=== PATIENT | male | born 1960 | race Caucasian/White ===

== ENCOUNTER 2017-06-20 19:02 | Inpatient (IN) | payer OTHER ==
--- NOTE | 2017-06-20 19:22 | EDPHY ---
H & P Stated Complaint: RLQ ABD PAIN WITH HERNIA REPAIR SCHEDULED FOR TOMORROW Time Seen by Provider: 06/20/17 19:21 HPI/ROS: HPI: This is a 57-year-old male presents with Chief Complaint: RLQ ABD PAIN WITH HERNIA REPAIR SCHEDULED FOR TOMORROW Location: Right lower quadrant abdomen Quality: Pain Duration: Last Saturday Signs and Symptoms: no fever, no nausea, no vomiting, no hematemesis, no blood in stool, no abdominal bloating, no diarrhea, no back pain, no urinary symptoms , no testicular/groin pain, no indigestion, no chest pain, no shortness of breath Timing: Waxes and wane Severity: 10 out 10 Context: Patient reports that last Saturday he had sudden onset of right flank pain that radiated into his back but went away after several hours. Yesterday evening the pain return but was a little bit lower in his right flank and radiated into his right groin. He denies any fever/hematuria/dysuria/vomiting/ diarrhea. Does report mild nausea. He is scheduled for right inguinal hernia repair with Dr. Farias tomorrow. He denies any testicular swelling/pain. Dr. Farias ordered an outpatient CT abdomen and pelvis this evening that showed a 5 mm calculus in the distal right ureter with moderate right hydronephrosis, bilateral nephrolithiasis, no signs of obstruction or adynamic ileus and right inner direct inguinal hernia contains only fat. Modifying Factors: None Comment: ROS: see HPI Constitutional: No fever, no chills, no weight loss Eyes: No blurred vision Respiratory: No shortness of breath, no cough Cardiovascular: No chest pain, no palpitations Gastrointestinal: + nausea, no vomiting, no diarrhea, no hematemesis, no blood in stool Genitourinary: No dysuria, no blood in urine Extremities: No myalgias, no edema Neurologic: No weakness, no numbness Skin: No rashes, no petechiae Hematologic: No bruising, no bleeding MEDICAL/SURGICAL/SOCIAL HISTORY: Medical/surgical history: inguinal hernia repair, surgery rt. knee,COLON CANCER. hyponatremia Social history: . CONSTITUTIONAL: Nontoxic appearing pleasant adult white male, awake and alert, moderate distress HEENT: Atraumatic and normocephalic, PERRL, EOMI. Tympanic membranes clear. Oropharynx clear, no exudate and moist pink mucosa. Airway patent. No lymphadenopathy. No meningismus. Cardiovascular: Normal S1/S2, regular rate, regular rhythm, without murmur rub or gallop. PULMONARY/CHEST: Symmetrical and nontender. Clear to auscultation bilaterally. Good air movement. No accessory muscle usage. ABDOMEN: Soft, nondistended, right flank tenderness, no rebound, no guarding, no peritoneal signs, no masses or organomegaly. Right CVAT. EXTREMITIES: 2/2 pulses, strength 5/5, no deformities, no clubbing, no cyanosis or edema. NEUROLOGICAL: no focal neuro deficits. GCS 15. SKIN: Warm and dry, no erythema. no rash. Good capillary refill. Source: Patient Exam Limitations: No limitations - Personal History Current Tetanus/Diphtheria Vaccine: Yes Current Tetanus Diphtheria and Acellular Pertussis (TDAP): Yes - Medical/Surgical History Hx Asthma: No Hx Chronic Respiratory Disease: No Hx Diabetes: No Hx Cardiac Disease: No Hx Renal Disease: No Hx Cirrhosis: No Hx Alcoholism: No Hx HIV/AIDS: No Hx Splenectomy or Spleen Trauma: No Other PMH: inguinal hernia repair, surgery rt. knee,COLON CANCER. hyponatremia - Social History Smoking Status: Never smoked Constitutional: Initial Vital Signs Temperature (C) 37.1 C 06/20/17 19:15 Heart Rate 62 06/20/17 19:15 Respiratory Rate 18 06/20/17 19:15 Blood Pressure 169/99 H 06/20/17 19:15 O2 Sat (%) 97 06/20/17 19:15 O2 Delivery Mode Room Air Allergies/Adverse Reactions: Penicillins Allergy (Verified 06/20/17 19:17) Home Medications: Medication Instructions Recorded NK [No Known Home Meds] 06/20/17 Medical Decision Making ED Course/Re-evaluation: Labs, urinalysis, IV fluids, IV medications ordered Patient given 2 L normal saline, IV Dilaudid, IV Toradol, and p.o. Flomax No signs of inguinal hernia incarceration/obstruction/adynamic ileus. Labs reviewed and show leukocytosis; no acute kidney injury/electrolyte imbalance. 1754: Reassessed patient who reports pain has mildly improved; IV Dilaudid ordered Spoke with Dr. Farias who recommends admission to hospital; he will consult, NPO after midnight. Plan is if patient passes stone prior to tomorrow morning, he will proceed with surgery. 1809 ED decision to consult for admission. Spoke with hospitalist, Dr. Correa, who kindly agrees to admit patient and provide further care. This patient was seen under the supervision of my secondary supervising physician. I evaluated care for this patient independently. Discussed this patient with Dr. Petit who did not see the patient. Patient's presentation, labs/imaging, treatment and plan of care were discussed with secondary supervising physician. Differential Diagnosis: Patient clearly has right ureterolithiasis. - Data Points Laboratory Results: Laboratory Results 06/20/17 19:35 06/20/17 19:35 06/20/17 06/20/17 19:35 19:35 WBC 10.34 10^3/uL H 10^3/uL (3.80-9.50) RBC 5.17 10^6/uL 10^6/uL (4.40-6.38) Hgb 17.0 g/dL g/dL (13.7-17.5) Hct 47.9 % % (40.0-51.0) MCV 92.6 fL fL (81.5-99.8) MCH 32.9 pg pg (27.9-34.1) MCHC 35.5 g/dL g/dL (32.4-36.7) RDW 12.9 % % (11.5-15.2) Plt Count 184 10^3/uL 10^3/uL (150-400) MPV 9.8 fL fL (8.7-11.7) Neut % (Auto) 74.4 % H % (39.3-74.2) Lymph % (Auto) 15.2 % % (15.0-45.0) [place] % (Auto) 8.2 % % (4.5-13.0) Eos % (Auto) 1.3 % % (0.6-7.6) Baso % (Auto) 0.5 % % (0.3-1.7) Nucleat RBC Rel Count 0.0 % % (0.0-0.2) Absolute Neuts (auto) 7.70 10^3/uL H 10^3/uL (1.70-6.50) Absolute Lymphs (auto) 1.57 10^3/uL 10^3/uL (1.00-3.00) Absolute Monos (auto) 0.85 10^3/uL H 10^3/uL (0.30-0.80) Absolute Eos (auto) 0.13 10^3/uL 10^3/uL (0.03-0.40) Absolute Basos (auto) 0.05 10^3/uL 10^3/uL (0.02-0.10) Absolute Nucleated RBC 0.00 10^3/uL 10^3/uL (0-0.01) Immature Gran % 0.4 % % (0.0-1.1) Immature Gran # 0.04 10^3/uL 10^3/uL (0.00-0.10) Sodium 141 mEq/L mEq/L (134-144) Potassium 3.9 mEq/L mEq/L (3.5-5.2) Chloride 102 mEq/L mEq/L (97-110) Carbon Dioxide 24 mEq/l mEq/l (22-31) Anion Gap 15 mEq/L mEq/L (8-16) BUN 17 mg/dL mg/dL (7-23) Creatinine 1.0 mg/dL mg/dL (0.7-1.3) Estimated GFR > 60 Glucose 93 mg/dL mg/dL (70-100) Calcium 9.7 mg/dL mg/dL (8.5-10.4) Medications Given: Discontinued Medications Hydromorphone HCl (Dilaudid) 1 mg IVP EDNOW ONE Stop: 06/20/17 19:37 Last Admin: 06/20/17 19:42 Dose: 1 mg Sodium Chloride (Ns) 1,000 mls @ 0 mls/hr IV ONCE ONE; Wide Open PRN Reason: Protocol Stop: 06/20/17 19:36 Last Admin: 06/20/17 19:43 Dose: 1,000 mls Sodium Chloride (Ns) 1,000 mls @ 0 mls/hr IV ONCE ONE; Wide Open PRN Reason: Protocol Stop: 06/20/17 19:36 Last Admin: 06/20/17 19:43 Dose: 1,000 mls Ketorolac Tromethamine (Toradol) 30 mg IVP EDNOW ONE Stop: 06/20/17 19:36 Last Admin: 06/20/17 19:43 Dose: 30 mg Ondansetron HCl (Zofran) 4 mg IVP EDNOW ONE Stop: 06/20/17 19:36 Last Admin: 06/20/17 19:42 Dose: 4 mg Tamsulosin HCl (Flomax) 0.4 mg PO EDNOW ONE Stop: 06/20/17 19:37 Last Admin: 06/20/17 19:44 Dose: 0.4 mg Departure - Departure Disposition: [facility] Acute Clinical Impression: Right inguinal hernia, Ureterolithiasis, Hydronephrosis of right kidney Condition: Fair
[2017-06-20] MEDS ORDERED: NS 1,000 ML IV ONE ×2 (19:35)
[2017-06-20] MEDS ORDERED: KETOROLAC 30 MG/1 ML SDV IVP ONE (19:35)
[2017-06-20] MEDS ORDERED: ONDANSETRON 4 MG/2 ML VIAL IVP ONE (19:35)
[2017-06-20] MEDS ORDERED: KETOROLAC 30 MG/1 ML SDV ONE (19:36)
[2017-06-20] MEDS ORDERED: TAMSULOSIN HCL 0.4 MG CAP PO ONE ×2 (19:36)
[2017-06-20] MEDS ORDERED: HYDROmorphONE/DILAUDID 1 MG/ML INJ IVP ONE (19:36)
[2017-06-20] MEDS ORDERED: ONDANSETRON 4 MG/2 ML VIAL ONE (19:36)
[2017-06-20] MEDS ORDERED: HYDROmorphONE/DILAUDID 1 MG/ML INJ ONE (19:37)
[2017-06-20 19:49] LABS: PLATELET COUNT 184 10^3/uL (150-400)
[2017-06-20] MEDS ORDERED: cefOXitin SODIUM 2 GM in STERILE WATER INJ 21 ML IV ONE (20:43)
[2017-06-20] MEDS ORDERED: ONDANSETRON DISINTEGRATING 4 MG TAB PO PRN (21:28)
[2017-06-20] MEDS ORDERED: ONDANSETRON 4 MG/2 ML VIAL IVP PRN (21:28)
--- NOTE | 2017-06-20 22:00 | GHP ---
[f rep st] HISTORY AND PHYSICAL DATE OF ADMISSION: 06/20/2017 CHIEF COMPLAINT: Right flank pain. HISTORY OF PRESENT ILLNESS: This is a 57-year-old male who does have a history of stage IIIC colon c ancer and finished chemotherapy a year and a half ago who also has a history of right inguinal hernia . This was scheduled to be operated on a couple of weeks from now. He states he developed right fla nk and abdominal pain a few days ago, which then subsided, but then came on fairly suddenly fairly se verely last night. He went to see Dr. Farias today who did not think it was this hernia and went for CT scanning which showed a kidney stone on the right with hydronephrosis. He is not having any fever s or chills. No dysuria. He did have some nausea. No vomiting. Pain is pretty well controlled cur rently. His surgery is scheduled for tomorrow in case he passes a stone. REVIEW OF SYSTEMS: A 10-point review of systems was obtained and was negative. PAST MEDICAL HISTORY: 1. Stage IIIC colon cancer. 2. Right inguinal hernia. SOCIAL HISTORY: No smoking. Occasional alcohol. 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 FAMILY HISTORY: Reviewed. PHYSICAL EXAMINATION: VITAL SIGNS: Afebrile, blood pressure is 145/80, heart rate 65, oxygen satura tion 98% on room air. GENERAL: The patient is well developed in no apparent distress. HEENT: Sabine cteric sclerae. Extraocular movements are intact. Moist mucous membranes. NECK: Supple. No thyro megaly. LUNGS: Good effort. Clear to auscultation bilaterally. CARDIOVASCULAR: Regular rate and rhythm. No murmurs or gallops. ABDOMEN: Positive bowel sounds. Soft. Some mild right lower quadr ant tenderness along with right flank tenderness. EXTREMITIES: No clubbing, cyanosis, or edema. SK IN: Without rash. Dry and intact. NEUROLOGIC: Moving all 4 extremities equally. PSYCHIATRIC: No rmal mood and affect. LABORATORY DATA: White count 10. Chemistry is normal. UA does not show any new signs of infection. CT scan shows a 5-mm stone in the distal right ureter with moderate hydronephrosis and bilateral neph rolithiasis and a right indirect inguinal hernia containing only fat. ASSESSMENT: This is a 57-year-old male presenting with a kidney stone. 1. Right kidney stone. No signs of infection. We will continue intravenous fluids and pain control . If he is able to pass the stone, then Dr. Mcgarry will take him to surgery tomorrow for this hernia . He can probably be discharged after his hernia repair. 2. Right inguinal hernia. 3. History of stage IIIC colon cancer in remission. /[id number]/MODL
[2017-06-20] MEDS: HYDROmorphONE/DILAUDID 1 MG/ML INJ IVP PRN (23:13)
[2017-06-21 04:38] LABS: PLATELET COUNT 121 10^3/uL (150-400)
[2017-06-21] MEDS: HYDROmorphONE/DILAUDID 1 MG/ML INJ IVP PRN ×6 (05:42→16:12)
[2017-06-21] MEDS: ACETAMINOPHEN 325 MG TAB PO PRN ×2 (05:57→11:44)
--- NOTE | 2017-06-21 10:36 | ASMTCMCOM ---
CM Note CM Note Notes: Reviewed chart. No current needs identified. CM available should needs arise. Plan home independent Date Signed: 06/21/2017 10:36 AM Electronically Signed By:June Gomez RN
[2017-06-21] MEDS: NS 1,000 ML IV SCH ×2 (12:16→18:46)
--- NOTE | 2017-06-21 13:04 | SOAPPROG ---
MAUDE Progress Note Assessment/Plan: Assessment: Ureterolithiasis Acute right distal ureter with mild hydronephrosis, consider intervention if pt desires Plan: consider ureteroscopy if stone does not pass spontaneously AT 8AM Saturday06/21/17 18:40 Subjective: rt flank pain Objective: Vital Signs Temp Pulse Resp BP Pulse Ox 36.7 C 54 L 18 157/84 H 98 06/21/17 11:43 06/21/17 11:43 06/21/17 11:43 06/21/17 11:43 06/21/17 11:43 Laboratory Results 06/21/17 04:24 06/21/17 04:24 06/20/17 06/21/17 06/22/17 05:59 05:59 05:59 Intake Total 1400 Balance 1400 review of CAT scan notes right distal ureteral stone and moderate BPH Physical Exam - Physical Exam General Appearance: alert Neck: supple Respiratory: No respiratory distress Abdomen: soft Back: No CVA tenderness Neuro/Psych: alert, oriented x 3 ICD10 Worksheet Patient Problems: Problems Problem Status Onset Hydronephrosis of right kidney Acute Right inguinal hernia Acute Ureterolithiasis Acute Anemia Acute Chest pain Acute Postoperative intra-abdominal abscess Acute Thrombocytosis Acute
--- NOTE | 2017-06-21 13:49 | SOAPPROG ---
SOAP Progress Note Assessment/Plan: Assessment: 57-year-old male with inguinal hernia, nephrolithiasis Patient reports he is still having pain although it is improved compared to prior to hospital admission. The pain is located over the right flank, right back. Physical exam Awake, alert, he is in computer, comfortable Abdomen soft nontender Plan: Appreciate Urology input/consult Most likely will not have hernia surgery during this hospital course Patient seen examined by Dr. Farias 06/21/17 13:47 Objective: Vital Signs Temp Pulse Resp BP Pulse Ox 36.7 C 54 L 18 157/84 H 98 06/21/17 11:43 06/21/17 11:43 06/21/17 11:43 06/21/17 11:43 06/21/17 11:43 Laboratory Results 06/21/17 04:24 06/21/17 04:24 06/20/17 06/21/17 06/22/17 05:59 05:59 05:59 Intake Total 1400 Balance 1400 ICD10 Worksheet Patient Problems: Problems Problem Status Onset Hydronephrosis of right kidney Acute Right inguinal hernia Acute Ureterolithiasis Acute Anemia Acute Chest pain Acute Postoperative intra-abdominal abscess Acute Thrombocytosis Acute
--- NOTE | 2017-06-21 14:33 | PDMN ---
Medical Necessity Medical necessity: Pt meets INPT criteria per MD and [facility] Renal Colic and Kidney Stones (distal R ureteral stone with moderate hydronephrosis and bilateral nephrolithiasis requiring ongoing IVF, IV pain control, possible intervention; est. LOS >2 MN).
--- NOTE | 2017-06-21 14:47 | HOSPPROG ---
Hospitalist Progress Note Assessment/Plan: 57 y male with pain. First encounter, chart reviewed. #Right kidney stone increase pain meds 5mm appreciate urology possible intervention #Right hydro due to stone #Pain related to above increase dilaudid #Hernia no intervention currently follow with Dr Farias #Hx of colon Ca remission #Dispo unclear cont supportive care with flomax and fluids consider intervention per urology will stay in hospital for IV pain meds and possible further intervention change to inpt Subjective: Still having significant pain. Uncomfortable. Objective: Vital Signs Temp Pulse Resp BP Pulse Ox 36.7 C 54 L 18 157/84 H 98 06/21/17 11:43 06/21/17 11:43 06/21/17 11:43 06/21/17 11:43 06/21/17 11:43 Laboratory Results 06/21/17 04:24 06/21/17 04:24 06/20/17 06/21/17 06/22/17 05:59 05:59 05:59 Intake Total 1400 Output Total 100 Balance 1400 -100 - Physical Exam Constitutional: appears nourished, uncomfortable, No obese Eyes: PERRL, anicteric sclera, EOMI Ears, Nose, Mouth, Throat: moist mucous membranes, hearing normal, ears appear normal Cardiovascular: regular rate and rhythym, No JVD, No edema Respiratory: no respiratory distress, no rales or rhonchi, reduced air movement Gastrointestinal: normoactive bowel sounds, No tenderness, No ascites Skin: warm, normal color, No erythema Musculoskeletal: full muscle strength, normal joint ROM, no joint effusions Neurologic: AAOx3 Psychiatric: interacting appropriately, not anxious, not encephalopathic, thought process linear ICD10 Worksheet Patient Problems: Problems Problem Status Onset Anemia Acute Chest pain Acute Postoperative intra-abdominal abscess Acute Thrombocytosis Acute Right inguinal hernia Acute Ureterolithiasis Acute Hydronephrosis of right kidney Acute
[2017-06-21] MEDS ORDERED: ceFAZolin 2 GM/SWFI 2 GM/20 ML SYR IVP ONE (18:38)
--- NOTE | 2017-06-21 18:41 | PDHPUP ---
History & Physical Update H&P update statement: This history and physical update is based on an assessment of the patient which was completed after admission or registration (within 24 hours), but prior to the surgery/procedure. H&P update: H&P reviewed & patient examined, no change in patient's condition since H&P completed
[2017-06-21] MEDS ORDERED: ceFAZolin 2 GM/DEXTROSE 100 ML IV ONE (19:00)
[2017-06-22] MEDS: HYDROmorphONE/DILAUDID 1 MG/ML INJ IVP PRN (00:41)
[2017-06-22] MEDS: ACETAMINOPHEN 325 MG TAB PO PRN (00:41)
[2017-06-22] MEDS ORDERED: IOPAMIDOL (ISOVUE-M 300) 15 ML VIAL ONE (06:09)
[2017-06-22] MEDS ORDERED: LIDOCAINE 2% JELLY 20 ML (UROJECT) ONE (06:09)
[2017-06-22] MEDS: NS 1,000 ML IV SCH (07:19)
[2017-06-22] MEDS ORDERED: ceFAZolin 2 GM/SWFI 20 ML SYR IVP ONE (08:00)
[2017-06-22] MEDS ORDERED: PROPOFOL 200 MG/20 ML VIAL ONE (08:18)
[2017-06-22] MEDS ORDERED: DEXAMETHASONE 4 MG/ML VIAL ONE (08:18)
[2017-06-22] MEDS ORDERED: fentaNYL 100 MCG/2 ML INJ ONE (08:18)
[2017-06-22] MEDS ORDERED: LIDOCAINE 2% 5 ML SDV ONE (08:19)
[2017-06-22] MEDS ORDERED: KETOROLAC 30 MG/1 ML SDV ONE (08:19)
[2017-06-22] MEDS ORDERED: MIDAZOLAM 2 MG/2 ML VIAL ONE (08:20)
[2017-06-22] MEDS ORDERED: ceFAZolin 2 GM/SWFI 2 GM/20 ML SYR IVP ONE (08:30)
--- NOTE | 2017-06-22 09:12 | PDANEPAE ---
ANE History of Present Illness ureteral stone ANE Past Medical History - Cardiovascular History Hx Hypertension: No Hx Arrhythmias: No Hx Chest Pain: No Hx Coronary Artery / Peripheral Vascular Disease: No Hx CHF / Valvular Disease: No Hx Palpitations: No - Pulmonary History Hx COPD: No Hx Asthma/Reactive Airway Disease: No Hx Recent Upper Respiratory Infection: No Hx Oxygen in Use at Home: No Hx Sleep Apnea: No Sleep Apnea Screening Result - Last Documented: Negative - Neurologic History Hx Cerebrovascular Accident: No Hx Seizures: No Hx Dementia: No - Endocrine History Hx Diabetes: No - Renal History Hx Renal Disorders: No - Liver History Hx Hepatic Disorders: No - Neurological & Psychiatric Hx Hx Neurological and Psychiatric Disorders: No - Cancer History Cancer History Comment: colon cancer - Congenital Disorder History Hx Congenital Disorders: No - GI History Hx Gastrointestinal Disorders: No - Other Health History Other Health History: anemia - Chronic Pain History Chronic Pain: No - Surgical History Prior Surgeries: colectomy 07/28/15. r knee menincus repair. left hernia reapir ANE Review of Systems Review of Systems: - Exercise capacity METS (RN): 4 METS ANE Patient History - Allergies Allergies/Adverse Reactions: Penicillins Allergy (Verified 06/20/17 19:17) - Home Medications Home Medications: NK [No Known Home Meds] 06/20/17 [Last Taken Unknown] - NPO status NPO Status: no food or drink >8 hours NPO Since - Liquids (Date): 06/21/17 NPO Since - Liquids (Time): 21:00 NPO Since - Solids (Date): 06/21/17 NPO Since - Solids (Time): 18:30 - Anes Hx Anes Hx: no prior problems - Smoking Hx Smoking Status: Never smoked - Family Anes Hx Family Hx Anesthesia Complications: neg ANE Labs/Vital Signs - Labs Result Diagrams: 06/21/17 04:24 06/21/17 04:24 - Vital Signs Blood Pressure: 154/81 Heart Rate: 61 Respiratory Rate: 16 O2 Sat (%): 97 Height: 175.26 cm Weight: 67.132 kg ANE Physical Exam - Airway Mallampati Score: Class 2 Mouth exam: normal dental/mouth exam - Pulmonary Pulmonary: no respiratory distress - Cardiovascular Cardiovascular: regular rate and rhythym - ASA Status ASA Status: I ANE Anesthesia Plan Anesthesia Plan: GA w LMA
[2017-06-22] MEDS ORDERED: fentaNYL 100 MCG/2 ML INJ IVP PRN (09:14)
[2017-06-22] MEDS ORDERED: MEPERIDINE 25 MG/ML SYR IVP PRN (09:14)
[2017-06-22] MEDS ORDERED: NALOXONE HCL 0.4 MG/ML INJ IVP PRN (09:14)
[2017-06-22] MEDS ORDERED: HYDROCODONE/APAP 5/325 TAB PO PRN (09:14)
[2017-06-22] MEDS ORDERED: NS 500 ML IV PRN (09:14)
[2017-06-22] MEDS ORDERED: ALBUTEROL 3 ML DEYVIAL IH PRN (09:14)
--- NOTE | 2017-06-22 09:14 | POSTANESTH ---
Post Anesthetic Evaluation Cardiovascular Status: Normal, Stable Respiratory Status: Normal, Stable Level of Consciousness/Mental Status: Can Participate in Eval Pain Control: Adequate, Prn Tx Ordered Nausea/Vomiting Control: Adequate, Prn Tx Ordered Complications Possibly Related to Anesthesia: None Noted
--- NOTE | 2017-06-22 09:20 | POSTOPPROG ---
Post Op Note Date of Operation: 06/22/17 Surgeon: Joseph García Anesthesiologist: Mj Anesthesia: LMA Pre-op Diagnosis: ureterolithiasis Post-op Diagnosis: same Indication: same Procedure: ureteroscopy , stone removal, stent Findings: dictated Inf/Abcess present in the surg proc area at time of surgery?: No EBL: Minimal Drains: Other (stent) Specimen(s): stone for analysis
--- NOTE | 2017-06-22 09:27 | GOP ---
[f rep st] OPERATIVE REPORT DATE OF OPERATION: 06/22/2017 SURGEON: Joseph García MD [employer] SALESPERSON: No orthopedic assistant. ANESTHESIA: General. ANESTHESIOLOGIST: Dr. Barker. PREOPERATIVE DIAGNOSIS: Right ureteral calculus, hydronephrosis. POSTOPERATIVE DIAGNOSIS: Right ureteral calculus, hydronephrosis. PROCEDURE PERFORMED: Cystoscopy, retrograde ureteral pyelogram with interpretation, ureteral dilatio n, ureteroscopy, laser lithotripsy of the stone, extraction of stone, and placement of 4.5 multi-muna th stent. FINDINGS: DESCRIPTION OF PROCEDURE: Preoperative time-out was performed appropriately and after undergoing gen eral anesthesia, and being prepped and draped in normal sterile fashion, in the dorsal lithotomy posi tion, his urethra was visualized with the cystoscope and he had mild BPH. Bladder had no tumor, ston es, foreign bodies or abnormalities noted. At that point, the right ureteral orifice was cannulated with a [place] catheter. Retrograde revealed the distal ureteral calculus with mild hydronephrosis ab ove it. At that point, the 0.032 guidewire was passed beyond the stone and then I used an inner work ing part of the ureteral access sheath to dilate the ureter and then a semi-rigid scope went up to th e stone. I fragmented it using a 273 micron fiber, at 10 pulses per second, 10 gutierrez, total of 83 haider ules, fragmented in several small pieces. I extracted the pieces with a stone basket and then revisu alized the ureter to make sure there was no perforation, significant trauma or residual stones. Ther e was edema at the site of the impacted stone, so at that point, I placed a 4.5 multi-length stent th at curled in the renal pelvis, curled in the bladder. At the end of the procedure, his bladder was d rained. He had a Uro-jet placed in his urethra, a 16 Short catheter placed. He will be discharged h ome without the catheter and to see me in 1 week for stent removal. Provided postoperative informati on on the stent to the patient, had him read it preop and try to make sure that his has access t o the same information upon discharge. /[id number]/MODL
[2017-06-22 11:03] VITALS: RESP 16
[2017-06-22 13:18] VITALS: BP 154/77; PULSE 66; TEMP 97.8; O2SAT 94
--- NOTE | 2017-06-22 20:58 | GDS ---
[f rep st] DISCHARGE SUMMARY NEW AND ACUTE DIAGNOSES ON THIS ADMISSION: 1. Right renal calculus, 3-5 mm, status post removal by Urology. 2. Right hydronephrosis, now resolving with the removal of stone. 3. Right flank pain. 4. History of colon cancer, currently in remission. CONSULTATION: Neurology. PROCEDURE: Cystoscopy with retrograde ureteral pyelogram, ureteral dilation, laser lithotripsy of th e stone, and extraction. HOSPITAL COURSE: A 57-year-old male with a known prior history of colon cancer (in remission), prese nted with right ureteral calculus between 3 and 5 mm, and was unable to pass the stone. This was acc ompanied by hydronephrosis and mild acute kidney injury. He stone underwent laser lithotripsy and ex traction by Dr. García on 06/22 and had good resolution of his pain and good urine flow. He had sligh t dysuria upon urination but no hematuria. He was eating well at the time of discharge. DISCHARGE MEDICATIONS: Tylenol. PLAN: He will see Dr. García in 8 days with removal of the ureteral stent. He will take Tylenol for pain. TIME: This discharge required 30 minutes, greater than 50% to student counsellor and coordinate care. /[id number]/MODL
--- NOTE | 2017-06-23 02:20 | GCON ---
[f rep st] CONSULTATION DATE OF CONSULTATION: 06/21/2017 HISTORY OF PRESENT ILLNESS: Patient is a 57-year-old male, who was admitted last night with severe r ight upper quadrant pain, extending up into his flank. Pain seemed out of proportion with his right inguinal hernia, which he is scheduled to have repaired today. CT scan was obtained and revealed a p robable right ureteral stone. He was admitted for IV fluids, antibiotics, and hopefully passage of h is stone. It appears, at this time, that his stone has not passed yet. It is unlikely he would be r connor and safe for his inguinal hernia repair. We will plan on obtaining a Urology consult, if he mohamud s not pass the stone soon. PAST HISTORY: Includes a colectomy for colon cancer. He has had an abdominal abscess. MEDICATIONS: Aspirin. ALLERGIES: Penicillin. REVIEW OF SYSTEMS: Negative on a full 10-point review of systems, except related to the present illn ess. He specifically does not smoke and denies any major cardiopulmonary troubles. PHYSICAL EXAMINATION: An alert, 57-year-old male, in no acute distress. His head and neck exam is n egative for icterus or adenopathy, or oral lesions. The chest is clear and symmetric. Cardiac exam reveals a regular rhythm. His abdomen is soft. He is somewhat tender in the right flank, but no nam l peritoneal signs. Has a reducible right inguinal hernia. Genitalia are normal. Extremities are b enign with full pulses, full range of motion. Neurologic exam is physiologic. Psychiatric exam is a lert, oriented, and cooperative. IMPRESSION: 1. Right inguinal hernia. 2. Right ureteral stone. PLANS: Postpone right inguinal hernia, and Urology consult for possible stone removal. Risks and op tions were fully discussed with the patient, and he fully understands and requests that we proceed [facility] Urology consult. /[id number]/MODL
--- NOTE | 2017-06-23 08:48 | ASDISCHSUM ---
Discharge Information Plan Status:Home with No Needs Medically Cleared to Leave:06/21/2017 Discharge Date:06/22/2017 03:03 PM CM D/C Disposition:Home, Routine, Self-Care ADT D/C Disposition:Home, Routine, Self-Care Projected Discharge Date:06/22/2017 03:03 PM Transportation at D/C:Family Discharge Delay Reason: Follow-Up Date:06/22/2017 03:03 PM Discharge Slot: Final Diagnosis: Placement Information Patient Contact Information Contact Name:RIAN Relationship: Address:[address] City:[place] Alternate Phone: [facility]/Zip Code:[place] [address] Email: Financial Information Financial Class:HMO and PPO Plans Primary Plan Desc:[employer] Primary Plan Number:[id number] Secondary Plan Desc: Secondary Plan Number: Assessment Information LACE LACE Length of stay for Answers: 2 days current admission Acuity / Level of Care Answers: Was the patient admitted to hospital via the emergency department? Yes: Comorbidities - select Answers: Any tumor (including all that apply lymphoma or leukemia) Emergency dept visits in Answers: 1 last 6 months Score: 8 Date Signed: 06/23/2017 08:46 AM Electronically Signed By:June Gomez RN [facility] CM Progress Note CM Note CM Note Notes: Reviewed chart. No current needs identified. CM available should needs arise. Plan home independent Date Signed: 06/21/2017 10:36 AM Electronically Signed By:June Gomez RN Intervention Information Intervention Type:*Incorrect Registration Date of Service:06/20/2017 11:49 AM Patient Type:Observation Staff Member:ABELARDO Last Kerry Hours: Discipline: Severity: Comment:
== END 2017-06-22 15:03 | disposition home or self-care (01) | DRG 669 ==
LOC: OBSVTOIN 20:13 → F3N 21:11
PROVIDERS: ADMIT Internal Medicine; ATTEND Internal Medicine Pulmonary Disease
PROC: BT161ZZ Fluoroscopy of Right Ureter using Low Osmolar Contrast (ICD-10-PCS; principal; 2017-06-22 08:00)
PROC: 0T767DZ Dilation of Right Ureter with Intraluminal Device, Via Natural or Artificial Opening (ICD-10-PCS; principal; 2017-06-22 08:00)
PROC: 0TC68ZZ Extirpation of Matter from Right Ureter, Via Natural or Artificial Opening Endoscopic (ICD-10-PCS; principal; 2017-06-22 08:00)
DX: N13.2 Hydronephrosis with renal and ureteral calculous obstruction (principal); K40.90 Unilateral inguinal hernia, without obstruction or gangrene, not specified as recurrent; Z85.038 Personal history of other malignant neoplasm of large intestine
CPT/HCPCS: 82365-90; 96374; C1758; C1769; C1894; C2625; J0690; J0694; J1100; J1170; J1885; J2250; J2405; J2704; J3010; Q9967

== ENCOUNTER → 2017-06-20 | Outpatient (CLI) | payer OTHER ==
[~2017-06-20] MED LIST: IOPAMIDOL (ISOVUE-300) 100 ML BTL ONE
== END ==
LOC: FIMAGING 16:58
PROVIDERS: ATTEND Surgery
DX: N13.39 Other hydronephrosis (principal); N20.0 Calculus of kidney
CPT/HCPCS: Q9967

== ENCOUNTER 2018-06-22 13:52 | Emergency (ER) | payer OTHER ==
[2018-06-22 14:24] LABS: PLATELET COUNT 348 10^3/uL (150-400)
--- NOTE | 2018-06-22 14:36 | EDPHY ---
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 Onset of diarrhea 3 weeks ago after a course of antibiotics for H pylori. Diagnosed with C diff colitis 4 days ago. Took 1 day course of vancomycin and then was switched to Dificid yesterday. After 1st dose of Dificid, onset of upper abdominal cramping, severe , waxing and waning. This morning after a 2nd dose of Dificid, 10/10, associated with nausea. He took 1 oxycodone and felt better. IV narcotics by EMS prior to arrival. Currently pain is 4/10. Continues to have watery diarrhea, no blood. Undergoing alternative treatment for CA. No fever. REVIEW OF SYSTEMS: complete 10 point ROS reviewed and is negative except for the noted elements in the HPI - Personal History Current Tetanus Diphtheria and Acellular Pertussis (TDAP): Unsure - Medical/Surgical History Hx Asthma: No Hx Chronic Respiratory Disease: No Hx Diabetes: No Hx Cardiac Disease: No Hx Renal Disease: No Hx Cirrhosis: No Hx Alcoholism: No Hx HIV/AIDS: No Hx Splenectomy or Spleen Trauma: No Other PMH: inguinal hernia repair, surgery rt. knee,COLON CANCER. hyponatremia, C-DIFF - Social History Smoking Status: Never smoked Alcohol Use: Sober Drug Use: None Additional Social History: - Physical Exam Exam: General Appearance: Alert, pleasant, nontoxic-appearing Eyes: Pupils equal and round, no conjunctival pallor or injection ENT, Mouth: Mucous membranes moist Neck: Normal inspection Respiratory: Lungs are clear to auscultation Cardiovascular: Regular rate and rhythm Gastrointestinal: Abdomen is soft, mild upper abdominal tenderness, especially left upper quadrant and epigastrium Neurological: A&O, nonfocal exam Skin: Warm and dry, no rash Extremities: Normal inspection Psychiatric: Mood and affect normal Constitutional: Initial Vital Signs Temperature (C) 36.5 C 06/22/18 14:05 Heart Rate 58 L 06/22/18 14:05 Respiratory Rate 16 06/22/18 14:05 Blood Pressure 107/68 06/22/18 14:05 O2 Sat (%) 97 06/22/18 14:05 O2 Delivery Mode Room Air Allergies/Adverse Reactions: Penicillins Allergy (Verified 06/20/17 19:17) Home Medications: Medication Instructions Recorded Acetaminophen [Tylenol 325mg (*)] 650 mg PO Q4HRS PRN tab 06/22/17 Dificid 200 MG (*) 06/22/18 Nutritional Supplement 06/22/18 Potassium Cl 06/22/18 oxyCODONE CR 06/22/18 Medical Decision Making - Diagnostics Imaging Results: Imaging Impressions Abdomen CT 06/22/18 14:39 Impression: 1. Mild enteritis. 2. Left-sided colitis in this patient with diarrhea. 3. Postoperative change with an intact ileocolic anastomosis. 4. Interim development of mesenteric and retroperitoneal lymphadenopathy. Correlation with serum CEA level is suggested with consideration of a PET/CT scan. 5. Prostatomegaly. 6. Nonobstructive right nephrolithiasis with a stable right renal cortical cyst. 7. Small pericardial effusion. Findings were discussed with SENG TANG MD at 16:27, on 06/22/2018. Imaging: Discussed imaging studies w/ body technician/painter Radiologist ED Course/Re-evaluation: This patient presents with known C difficile colitis, now with increasing abdominal cramping after starting Dificid. IV normal saline 1 L and Toradol 15 mg IV given. Feels much better after IV Toradol. CT scan of the abdomen pelvis ordered. CT scan results discussed with the patient and reveals diffuse colitis and adenopathy. No localized abscess or small-bowel obstruction. Admission versus discharge home discussed with the patient's . He would greatly prefer to go home and feels that he will be comfortable at home. He will start taking Tylenol around the clock for pain control. He will also take oxycodone as previously prescribed for severe pain. Abdominal pain precautions given. Abdominal exam remains benign on discharge. Differential Diagnosis: Differential diagnosis includes though it is not limited to appendicitis, cholecystitis, diverticulitis, pyelonephritis, bowel perforation, small bowel obstruction. - Data Points Laboratory Results: Laboratory Results 06/22/18 14:00 06/22/18 14:00 06/22/18 06/22/18 14:00 14:00 WBC 8.95 10^3/uL 10^3/uL (3.80-9.50) RBC 5.08 10^6/uL 10^6/uL (4.40-6.38) Hgb 16.8 g/dL g/dL (13.7-17.5) Hct 48.2 % % (40.0-51.0) MCV 94.9 fL fL (81.5-99.8) MCH 33.1 pg pg (27.9-34.1) MCHC 34.9 g/dL g/dL (32.4-36.7) RDW 13.2 % % (11.5-15.2) Plt Count 348 10^3/uL 10^3/uL (150-400) MPV 9.3 fL fL (8.7-11.7) Neut % (Auto) 77.0 % H % (39.3-74.2) Lymph % (Auto) 15.0 % % (15.0-45.0) [place] % (Auto) 5.8 % % (4.5-13.0) Eos % (Auto) 0.8 % % (0.6-7.6) Baso % (Auto) 0.4 % % (0.3-1.7) Nucleat RBC Rel Count 0.0 % % (0.0-0.2) Absolute Neuts (auto) 6.89 10^3/uL H 10^3/uL (1.70-6.50) Absolute Lymphs (auto) 1.34 10^3/uL 10^3/uL (1.00-3.00) Absolute Monos (auto) 0.52 10^3/uL 10^3/uL (0.30-0.80) Absolute Eos (auto) 0.07 10^3/uL 10^3/uL (0.03-0.40) Absolute Basos (auto) 0.04 10^3/uL 10^3/uL (0.02-0.10) Absolute Nucleated RBC 0.00 10^3/uL 10^3/uL (0-0.01) Immature Gran % 1.0 % % (0.0-1.1) Immature Gran # 0.09 10^3/uL 10^3/uL (0.00-0.10) Sodium 137 mEq/L mEq/L (135-145) Potassium 4.2 mEq/L mEq/L (3.5-5.2) Chloride 102 mEq/L mEq/L (97-110) Carbon Dioxide 26 mEq/l mEq/l (22-31) Anion Gap 9 mEq/L mEq/L (6-14) BUN 18 mg/dL mg/dL (7-23) Creatinine 0.7 mg/dL mg/dL (0.7-1.3) Estimated GFR > 60 Glucose 108 mg/dL H mg/dL (70-100) Calcium 9.3 mg/dL mg/dL (8.5-10.4) Total Bilirubin 0.5 mg/dL mg/dL (0.1-1.4) Conjugated Bilirubin 0.4 mg/dL mg/dL (0.0-0.5) Unconjugated Bilirubin 0.1 mg/dL mg/dL (0.0-1.1) AST 43 IU/L IU/L (17-59) ALT 41 IU/L IU/L (21-72) Alkaline Phosphatase 68 IU/L IU/L (38-126) Total Protein 6.7 g/dL g/dL (6.3-8.2) Albumin 4.1 g/dL g/dL (3.5-5.0) Lipase 118 IU/L IU/L (23-300) Medications Given: Discontinued Medications Ketorolac Tromethamine (Toradol) 15 mg IVP EDNOW ONE Stop: 06/22/18 15:07 Last Admin: 06/22/18 15:08 Dose: 15 mg Ketorolac Tromethamine (Toradol) 15 mg IVP EDNOW ONE Stop: 06/22/18 15:09 Last Admin: 06/22/18 15:23 Dose: 15 mg Departure - Departure Disposition: Home, Routine, Self-Care Clinical Impression: C. difficile colitis Condition: Good Instructions: C Diff (Clostridium Difficile) Infection (ED), Acute Abdominal Pain (ED) Additional Instructions: 1. Take Tylenol 650mg every 4 hours for pain. 2. Take oxycodone as prescribed as needed for severe pain. 3. Drink plenty of fluids. 4. I suggest that you resume Vancomycin and discontinue Dificid. 5. Return for worsening symptoms or any concerns. Referrals: RAMU MARSH [Other] - 2-3 days, if not improved
[2018-06-22] MEDS ORDERED: IOPAMIDOL (ISOVUE-300) 100 ML BTL ONE (14:55)
[2018-06-22] MEDS ORDERED: KETOROLAC 15 MG/1 ML SDV ONE (15:05)
[2018-06-22] MEDS ORDERED: KETOROLAC 15 MG/1 ML SDV IVP ONE ×2 (15:06→15:08)
[2018-06-22 17:37] VITALS: BP 125/65
== END 2018-06-22 17:37 | disposition home or self-care (01) ==
LOC: EDUNIT#
DX: A04.72 Enterocolitis due to Clostridium difficile, not specified as recurrent (principal); Z85.038 Personal history of other malignant neoplasm of large intestine; Z88.0 Allergy status to penicillin
CPT/HCPCS: 96374; J1885; Q9967

== ENCOUNTER 2018-11-03 16:30 | Inpatient (IN) | payer OTHER ==
--- NOTE | 2018-11-03 16:30 | EDPHY ---
H & P Time Seen by Provider: 11/03/18 16:31 Constitutional: Initial Vital Signs Temperature (C) 37.5 C 11/03/18 16:33 Heart Rate 60 11/03/18 16:33 Respiratory Rate 18 11/03/18 16:33 Blood Pressure 130/87 H 11/03/18 16:33 O2 Sat (%) 99 11/03/18 16:33 O2 Delivery Mode Room Air Allergies/Adverse Reactions: Penicillins Allergy (Verified 11/03/18 16:35) Home Medications: Medication Instructions Recorded Gabapentin [Gralise] 600 mg PO TID 11/03/18 Herbals/Supplements -Info Only 1 ea PO DAILY 11/03/18 Vancomycin [Vancomycin (*)] 125 mg PO Q6 11/03/18 oxyCODONE CR [Oxycontin] 40 mg PO Q12H 11/03/18 oxyCODONE IR [Oxycodone Ir (*)] 5 mg PO Q4-6PRN PRN 11/03/18 Medical Decision Making - Diagnostics Imaging Results: Imaging Impressions Abdomen CT 11/03/18 16:34 Impression: 1. Progressive metastatic disease with new multiple pulmonary nodules at the lung bases, several which are cavitary as well as new hepatic metastatic disease. Progressively enlarged mesenteric, periaortic, and portacaval lymph nodes. 2. Moderate constipation. 3. Other chronic findings as above. Results called and discussed with Dario Freed MD, on 11/03/2018, 17:58. Imaging: Discussed imaging studies w/ call worker person Radiologist, I viewed and interpreted images myself ED Course/Re-evaluation: CHIEF COMPLAINT: Abdominal pain HISTORY OF PRESENT ILLNESS: The patient is a 58 y/o male with a history of stage 4 colon cancer requiring several surgeries arriving via EMS for abdominal pain. The patient reports that he is seen by an oncologist at [facility], last had a PET scan 2 weeks ago, and is not on any treatment for his colon cancer. On Saturday, 2 days ago, he was diagnosed with C. Diff and started on oral vancomycin. Today he developed the severe abdominal pain, which was similar to the pain during his last C. Diff diagnosis in May 2018. He received 200mcg IV Fentanyl while en route to the emergency department. No fever, headache, body aches, lightheadedness, chest pain, heart palpitations, shortness of breath, cough, numbness, paresthesias. REVIEW OF SYSTEMS: A comprehensive 10 system review of systems is otherwise negative aside from elements mentioned in the history of present illness and medical decision making. PHYSICAL EXAM: HR, BP, O2 Sat, RR. Temp noted General Appearance: Appears uncomfortable, alert, well hydrated, appropriate, and non-toxic appearing. Head: Atraumatic without scalp tenderness or obvious injury Eyes: Pupils equal, round, reactive to light and accommodation, EOMI, no trauma , no injection. Ears: Clear bilaterally, no perforation, normal landmarks Nose: Atraumatic, no rhinorrhea, clear. Throat: There is no erythema or exudates, no lesions, normal tonsils, mucus membranes moist. Neck: Supple, 2+ carotid upstroke, nontender, no lymphadenopathy. Respiratory: No retractions, no distress, no wheezes, and no accessory muscle use. Lungs are clear to auscultation bilaterally. Cardiovascular: Regular rate and rhythm, no murmurs, rubs, or gallops. Bilateral carotid, radial, dorsalis pedis, and posterior tibial pulses intact. Good capillary refill all extremities. Gastrointestinal: Diffuse abdominal tenderness to palpation. Abdomen is soft, non-distended, no masses, no rebound, no guarding, no peritoneal signs. Musculoskeletal: Normal active ROM of all extremities, atraumatic. Neurological: Alert, appropriate, and interactive. The patient has normal DTRs and non-focal cranial nerves, motor, sensory, and cerebellar exam. Skin: No rashes, good turgor, no nodules on palpation. 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 Considerable progression of tumors since June. DIFFERENTIAL DIAGNOSIS: The differential diagnosis for the patient's abdominal pain included but was not limited to metastatic colon cancer, appendicitis, cholecystitis, hernias, testicular torsion, gastritis, and urinary tract infection. MEDICAL DECISION MAKING: The patient is a 58 y/o male with a history of stage 4 colon cancer requiring several surgeries arriving via EMS for abdominal pain. On Saturday, 2 days ago, he was diagnosed with C. Diff and started on oral vancomycin. He received 200mcg IV Fentanyl while en route to the emergency department. On exam he appears very uncomfortable and has diffuse abdominal tenderness to palpation. Labs and abdominopelvic CT; 1L IV NS, 4mg IV Zofran and 1mg IV Dilaudid administered. 1723: Patient is still in pain, additional 1 mg IV Dilaudid administered. 1750: I spoke with Dr. Mann, radiologist, regarding patient's findings. There are no acute findings but there is progression of his cancer. 175: Reassessed patient and discussed imaging and laboratory findings. He is still in pain; 20mg IV Ketamine. 1757: I consulted with Dr. Pepper, hospitalist, he accepts admission of this patient for intractable pain. - Data Points Laboratory Results: Laboratory Results 11/03/18 17:05 11/03/18 17:05 11/03/18 11/03/18 11/03/18 17:11 17:05 17:05 WBC RBC Hgb POC Hgb 12.6 gm/dL L gm/dL (13.7-17.5) Hct POC Hct 37 % L % (40-51) MCV MCH MCHC RDW Plt Count MPV Neut % (Auto) Lymph % (Auto) [place] % (Auto) Eos % (Auto) Baso % (Auto) Nucleat RBC Rel Count Absolute Neuts (auto) Absolute Lymphs (auto) Absolute Monos (auto) Absolute Eos (auto) Absolute Basos (auto) Absolute Nucleated RBC Immature Gran % Immature Gran # PT 13.9 SEC SEC (12.0-15.0) INR 1.11 (0.83-1.16) APTT 26.8 SEC SEC (23.0-38.0) POC Sodium 141 mEq/L mEq/L (135-145) Sodium 136 mEq/L mEq/L (135-145) POC Potassium 3.7 mEq/L mEq/L (3.3-5.0) Potassium 3.9 mEq/L mEq/L (3.5-5.2) POC Chloride 106 mEq/L mEq/L (97-110) Chloride 106 mEq/L mEq/L (97-110) Carbon Dioxide 20 mEq/l L mEq/l (22-31) POC Total CO2 20 mEq/L L mEq/L (22-31) Anion Gap 10 mEq/L mEq/L (6-14) POC BUN 30 mg/dL H mg/dL (7-23) BUN 35 mg/dL H mg/dL (7-23) Creatinine 1.1 mg/dL mg/dL (0.7-1.3) POC Creatinine 1.2 mg/dL mg/dL (0.7-1.3) Estimated GFR > 60 Glucose 101 mg/dL H mg/dL (70-100) POC Glucose 105 mg/dL H mg/dL (70-100) Calcium 8.9 mg/dL mg/dL (8.5-10.4) Total Bilirubin 0.5 mg/dL mg/dL (0.1-1.4) Conjugated Bilirubin 0.1 mg/dL mg/dL (0.0-0.5) Unconjugated Bilirubin 0.4 mg/dL mg/dL (0.0-1.1) AST 41 IU/L IU/L (17-59) ALT 43 IU/L IU/L (21-72) Alkaline Phosphatase 48 IU/L IU/L (38-126) Total Protein 5.8 g/dL L g/dL (6.3-8.2) Albumin 3.7 g/dL g/dL (3.5-5.0) Lipase 52 IU/L IU/L (23-300) 11/03/18 17:05 WBC 4.81 10^3/uL 10^3/uL (3.80-9.50) RBC 3.95 10^6/uL L 10^6/uL (4.40-6.38) Hgb 12.5 g/dL L g/dL (13.7-17.5) POC Hgb Hct 35.3 % L % (40.0-51.0) POC Hct MCV 89.4 fL fL (81.5-99.8) MCH 31.6 pg pg (27.9-34.1) MCHC 35.4 g/dL g/dL (32.4-36.7) RDW 14.6 % % (11.5-15.2) Plt Count 159 10^3/uL 10^3/uL (150-400) MPV 9.8 fL fL (8.7-11.7) Neut % (Auto) 81.0 % H % (39.3-74.2) Lymph % (Auto) 13.3 % L % (15.0-45.0) [place] % (Auto) 3.7 % L % (4.5-13.0) Eos % (Auto) 1.2 % % (0.6-7.6) Baso % (Auto) 0.4 % % (0.3-1.7) Nucleat RBC Rel Count 0.0 % % (0.0-0.2) Absolute Neuts (auto) 3.89 10^3/uL 10^3/uL (1.70-6.50) Absolute Lymphs (auto) 0.64 10^3/uL L 10^3/uL (1.00-3.00) Absolute Monos (auto) 0.18 10^3/uL L 10^3/uL (0.30-0.80) Absolute Eos (auto) 0.06 10^3/uL 10^3/uL (0.03-0.40) Absolute Basos (auto) 0.02 10^3/uL 10^3/uL (0.02-0.10) Absolute Nucleated RBC 0.00 10^3/uL 10^3/uL (0-0.01) Immature Gran % 0.4 % % (0.0-1.1) Immature Gran # 0.02 10^3/uL 10^3/uL (0.00-0.10) PT INR APTT POC Sodium Sodium POC Potassium Potassium POC Chloride Chloride Carbon Dioxide POC Total CO2 Anion Gap POC BUN BUN Creatinine POC Creatinine Estimated GFR Glucose POC Glucose Calcium Total Bilirubin Conjugated Bilirubin Unconjugated Bilirubin AST ALT Alkaline Phosphatase Total Protein Albumin Lipase Medications Given: Discontinued Medications Hydromorphone HCl (Dilaudid) 1 mg IVP EDNOW ONE Stop: 11/03/18 16:35 Last Admin: 11/03/18 16:50 Dose: 1 mg Hydromorphone HCl (Dilaudid) 1 mg IVP EDNOW ONE Stop: 11/03/18 17:24 Last Admin: 11/03/18 17:25 Dose: 1 mg Hydromorphone HCl (Dilaudid) 1 mg IVP EDNOW ONE Stop: 11/03/18 17:54 Last Admin: 11/03/18 18:08 Dose: 1 mg Sodium Chloride (Ns) 1,000 mls @ 0 mls/hr IV EDNOW ONE; Wide Open PRN Reason: Protocol Stop: 11/03/18 16:35 Last Admin: 11/03/18 16:49 Dose: 1,000 mls Ketamine HCl (Ketamine) 20 mg IVP EDNOW ONE Stop: 11/03/18 17:57 Last Admin: 11/03/18 18:08 Dose: 20 mg Ondansetron HCl (Zofran) 4 mg IVP EDNOW ONE Stop: 11/03/18 16:35 Last Admin: 11/03/18 16:49 Dose: 4 mg Point of Care Test Results: Chemistry 11/03/18 17:11 POC Sodium 141 mEq/L mEq/L (135-145) POC Potassium 3.7 mEq/L mEq/L (3.3-5.0) POC Chloride 106 mEq/L mEq/L (97-110) POC Total CO2 20 mEq/L L mEq/L (22-31) POC BUN 30 mg/dL H mg/dL (7-23) POC Creatinine 1.2 mg/dL mg/dL (0.7-1.3) POC Glucose 105 mg/dL H mg/dL (70-100) ISTAT H&H 11/03/18 17:11 POC Hgb 12.6 gm/dL L gm/dL (13.7-17.5) POC Hct 37 % L % (40-51) Departure - Departure Disposition: [facility] Inpatient Acute Clinical Impression: Intractable pain Abdominal pain Qualifiers: Abdominal location: generalized Qualified Code(s): R10.84 - Generalized abdominal pain Colon cancer Qualifiers: Colon location: unspecified part of colon Qualified Code(s): C18.9 - Malignant neoplasm of colon, unspecified Condition: Fair Report Scribed for: Dario Freed Report Scribed by: Felicia Valenzuela Date of Report: 11/03/18 Time of Report: 18:04
[2018-11-03] MEDS ORDERED: NS 1,000 ML IV ONE (16:34)
[2018-11-03] MEDS ORDERED: HYDROmorphONE/DILAUDID 2 MG/ML INJ IVP ONE ×3 (16:34→17:53)
[2018-11-03] MEDS ORDERED: ONDANSETRON 4 MG/2 ML VIAL IVP ONE (16:34)
[2018-11-03] MEDS ORDERED: IOPAMIDOL (ISOVUE-300) 100 ML BTL ONE (17:16)
[2018-11-03 17:23] LABS: PLATELET COUNT 159 10^3/uL (150-400)
[2018-11-03] MEDS ORDERED: HYDROmorphONE/DILAUDID 1 MG/ML INJ ONE (17:23)
[2018-11-03 17:38] LABS: INR 1.11 (0.83-1.16); PROTIME(PATIENT) 13.9 SEC (12.0-15.0)
[2018-11-03] MEDS ORDERED: KETAMINE 200 MG/20 ML VIAL IVP ONE (17:56)
[2018-11-03] MEDS ORDERED: ACETAMINOPHEN 325 MG TAB PO PRN ×2 (19:38→19:40)
[2018-11-03] MEDS ORDERED: ONDANSETRON 4 MG/2 ML VIAL IVP PRN (19:40)
[2018-11-03] MEDS ORDERED: ONDANSETRON DISINTEGRATING 4 MG TAB PO PRN (19:40)
--- NOTE | 2018-11-03 20:10 | GHP ---
[f rep st] HISTORY AND PHYSICAL DATE OF ADMISSION: 11/03/2018 CHIEF COMPLAINT: Abdominal pain. HISTORY OF PRESENT ILLNESS: This is a 58-year-old man with metastatic colon cancer who presents with abdominal pain. Notably, he was diagnosed with C diff 2 days ago. He tells me that he has chronic abdominal pain; however, it is typically managed with 40 of oxycodone twice daily and oxycodone IR liriano pplemented as necessary. His pain is due to his colon cancer. Since he got C diff, his pain has got ten significantly worse. It is diffuse. Thus, he presented to the emergency department. En route, he had received 200 mcg of fentanyl with no significant relief. In the emergency department, he rece ived a total of 3 mg of Dilaudid IV and 20 mg of ketamine IV. He is much more comfortable after rece iving the ketamine. PAST MEDICAL/SURGICAL HISTORY: 1. Colon cancer, metastatic, currently not on treatment. This was diagnosed in 2016. He did underg o chemotherapy at that time, recurred in 2018. 2. Kidney stones. MEDICATIONS: Please see medication reconciliation. ALLERGIES: Penicillin. FAMILY HISTORY: Reviewed and noncontributory. SOCIAL HISTORY: He is accompanied by his . REVIEW OF SYSTEMS: A 10-point review of systems is conducted and is negative except per HPI. PHYSICAL EXAMINATION: VITAL SIGNS: Blood pressure 114/73, heart rate 53, respiration rate 14, satur ating 99% on 2 L. Temperature 36.7. GENERAL: Mr Velazco is a pleasant man who appears somewhat unc omfortable holding his abdomen. HEENT: Normocephalic, atraumatic. CARDIOVASCULAR: Regular rate an d rhythm. No murmurs, rubs, or gallops. PULMONARY: Lungs clear to auscultation bilaterally. ABDOM EN: Abdominal exam on light palpation is soft. He is diffusely tender to palpation. SKIN: Shows n o rash. : No Short. NEUROLOGIC: Alert and oriented x3. He is moving all extremities. PSYCHIAT MIYA: Normal mood and affect. LABS: CBC shows him to be slightly anemic. His bicarb is 20, creatinine is 1.1. DATA: 1. Discussed with Dr. Freed. Will admit to med/surg. 2. Abdominal CT scan shows progression of his metastatic cancer with nothing acute. No free air. IMPRESSION AND PLAN: 1. Uncontrolled pain. This was relieved by ketamine. For now we will continue with home oral narco tic medications and give him IV Dilaudid on top of this as needed. He also takes Gralise. We are co nverting this to an equivalent gabapentin dose while he is here. Pain seems potentially worsened in the setting of Clostridium difficile with underlying chronic abdominal pain from his metastatic colon cancer. 2. Metastatic colon cancer. He is currently not undergoing treatment for this. He is followed at [facility]. 3. Recent diagnosis of Clostridium difficile. We will continue his vancomycin p.o. 4. Code status: He would like to be full code. He would like his to be his decision maker tracey uld he need 1. 5. Venous thromboembolism risk is high risk given his metastatic cancer. I have placed him on Loven ox. /[id number]/MODL
[2018-11-03] MEDS: GABAPENTIN 300 MG CAP PO SCH (20:31)
[2018-11-03] MEDS: VANCOMYCIN 125 MG/2.5 ML UDL PO SCH (22:19)
[2018-11-03] MEDS: oxyCODONE IR 5 MG TAB PO PRN (22:19)
[2018-11-03] MEDS: HYDROmorphONE/DILAUDID 1 MG/ML INJ IVP PRN (22:19)
[2018-11-04] MEDS: HYDROmorphONE/DILAUDID 1 MG/ML INJ IVP PRN (02:17)
[2018-11-04] MEDS: oxyCODONE IR 5 MG TAB PO PRN ×3 (02:19→14:54)
[2018-11-04] MEDS ORDERED: KETAMINE 200 MG/20 ML VIAL IVP ONE (02:30)
[2018-11-04] MEDS ORDERED: NALOXONE HCL 0.4 MG/ML INJ IVP PRN (03:18)
[2018-11-04] MEDS: HYDROmorphONE/DILAUDID 6 MG/30 ML PCA IV PRN ×2 (03:49→20:13)
[2018-11-04] MEDS: VANCOMYCIN 125 MG/2.5 ML UDL PO SCH ×3 (04:03→17:53)
[2018-11-04] MEDS: GABAPENTIN 300 MG CAP PO SCH ×3 (08:52→22:26)
[2018-11-04] MEDS ORDERED: KETOROLAC 30 MG/1 ML SDV IVP PRN (09:03)
[2018-11-04] MEDS: ENOXAPARIN 40 MG/0.4 ML SYR SC SCH (09:06)
--- NOTE | 2018-11-04 09:13 | SOAPPROG ---
SOAP Progress Note Assessment/Plan: Assessment: 58 yo male with a h/o metastatic colon cancer which was diagnosed in 2016 and with recurrence in 2018. He was admitted after being diagnosed with cdiff on Saturday for increased and uncontrollable abdominal pain. Plan: Uncontrolled abdominal pain: pain at baseline with colon cancer, but increased with current episode of cdiff. 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 Will add toradol 30mg q6h. Also continue outpt meds- oxycontin 40mg q12h and prn oxycodone for breakthrough. CDiff: PO vanco. Loose bowel movements are slowed. Has had fecal transplant previously, will consult GI to see if a repeat transplant may be an option. Colon cancer, metastatic: currently not being treated, followed at [facility] Code status: Full cor DVT Prophylaxis: Lovenox Dispo: admit to inpt as anticipate greater than 2 midnights 11/04/18 09:05 Subjective: Vinny is resting in the chair this morning. He says that his pain is better than it was when he was admitted, but is still uncontrolled. Had two bowel movements yesterday - one diarrhea and second one more formed. None yet today. Objective: Vital Signs Temp Pulse Resp BP Pulse Ox 36.8 C 53 L 12 117/79 96 11/04/18 00:00 11/04/18 08:00 11/04/18 08:00 11/04/18 08:00 11/04/18 08:00 11/03/18 11/04/18 11/05/18 05:59 05:59 05:59 Intake Total 1570 Output Total 400 Balance 1170 PT 13.9 SEC (12.0-15.0) 11/03/18 17:05 INR 1.11 (0.83-1.16) 11/03/18 17:05 Gen- alert, oriented Head- normocephalic, atraumatic Skin-warm and dry Abd- diffusely ttp, nondistended ICD10 Worksheet Patient Problems: Problems Problem Status Onset Abdominal pain Acute Colon cancer Acute Intractable pain Acute Anemia Acute Chest pain Acute Hydronephrosis of right kidney Acute Postoperative intra-abdominal abscess Acute Right inguinal hernia Acute Thrombocytosis Acute Ureterolithiasis Acute
[2018-11-04] MEDS ORDERED: NS 1,000 ML IV SCH (11:15)
[2018-11-04] MEDS ORDERED: NS 500 ML IV ONE (12:15)
[2018-11-04] MEDS ORDERED: DEXMEDETOMIDINE HCL 400 MCG in NS 100 ML IV SCH (12:30)
--- NOTE | 2018-11-04 13:27 | GCON ---
[f rep st] CONSULTATION INTENSIVE CONSULTATION REASON FOR ADMISSION: Acute abdominal pain and metastatic colon cancer. The patient is a very pleasant 58-year-old white male with a past medical history of metastatic colon cancer. This was diagnosed in 2016. He underwent chemotherapy. His chemotherapy is currently on h old. He is being evaluated currently for some studies at [facility]. He has chronic abdominal pain. This became markedly worse in the last 24 hours. He has recently been diagnosed with Clostridium di fficile 2 days ago. He states that he was seen in the emergency room [facility] transferred to step-down unit for pain control. He is on a comb ination of IV Dilaudid, ketamine was tried last night but caused too many side effects. His pain is reasonably well controlled and currently a 3/10. PAST MEDICAL HISTORY: Significant for metastatic colon cancer and kidney stones. ALLERGIES: Penicillin. FAMILY HISTORY: Noncontributory. SOCIAL HISTORY: No history of tobacco use. No history of alcohol use. 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 He is . He has lived in [place] for many years. He is originally from [facility]. CURRENT MEDICATIONS: Include: Tylenol Lovenox, Neurontin, hydromorphone, and oxycodone CR. He is a lso on vancomycin orally. PHYSICAL EXAM: VITAL SIGNS: Blood pressure is 88/50, pulse is 47, respirations 14, temperature 36.6 , oxygen saturation 98% on room air. GENERAL: He is a thin, but well-developed 58-year-old white mal e who is resting comfortably, sitting up in a chair. HEENT: Eyes ROCKY, EOMI. Throat shows no eryth yang or tonsillar hypertrophy. NECK: Supple. No cervical adenopathy. HEART: Regular rate and rhythm without murmurs, rubs, gallops. LUNGS: Diminished breath sounds but no wheeze. ABDOMEN: Soft, no ntender. Bowel sounds are present. EXTREMITIES: No clubbing, cyanosis, or edema. LABORATORIES: White count 4.8, hemoglobin 12, hematocrit 37, platelet count is 159. Sodium 141, pot assium 3.7, chloride 106, CO2 is 20, BUN is 35, creatinine is 1.[address] scan of the abdomen and pelvis shows progressive metastatic disease with multiple new focal pulmon hong nodules in the lung bases. These are cavitary. There also is new hepatic metastatic disease. IMPRESSION: 1. Metastatic colon cancer with significant progression. 2. Hypotension. This appears to be hypovolemic. 3. Acute renal failure, appears to be prerenal. 4. Clostridium difficile. 5. Mild anemia. RECOMMENDATIONS: 1. Agree with aggressive IV hydration. 2. We will continue Dilaudid BREAST BUFFER. 3. We will add Precedex to the regime. 4. Continue oral vancomycin. 5. DVT and PE prophylaxis. 6. Ulcer prophylaxis. /[id number]/MODL
[2018-11-04] MEDS ORDERED: oxyCODONE IR 5 MG TAB PO PRN (15:00)
--- NOTE | 2018-11-04 15:27 | PDMN ---
Medical Necessity Medical necessity: Change to inpt as of 11/04/18, meets inpt criteria per MD order and MCG M-05, Abdominal Pain, A-1 day, inpt adm indicated for: severe pain requiring acute inpt managmement, pt on Dilaudid FINISH REMOVER, and for: significant progression of colon cancer (abd CT shows progressive metastatic disease w/mult new focal pulm nodules in the lung bases and new hepatic metastatic disease). 58 y/o w/hx metastatic colon cancer, recent dx of C. Diff initially admitted OBS for uncontrolled abd pain w/current episode of C. Diff, upgraded to inpt as pt requiring Dilaudid FINISH REMOVER in addition to IV Toradol and PO pain meds, also started on Precedex today, aggressive IV hydration, upgraded to SDU lv of care, est LOS>2MN for ongoing management of above.
[2018-11-04] MEDS ORDERED: NS 1,000 ML IV ONE (15:28)
[2018-11-04] MEDS ORDERED: ALBUMIN 25% 100 ML IV ONE (15:28)
--- NOTE | 2018-11-04 15:43 | ASMTCASEMG ---
Living Arrangements What is your living Answers: With Spouse arrangement? Who do you live with? Type Of Residence What kind of residence do Answers: House you live in? Discharge Plan Comments Coordination Status Comments Notes: Patient is a 58yo male with metastatic colon cancer who presents with abdominal pain. Patient was diagnosed with CDiff 2 days ago. Patient is full code and states he would like his to be his MDPOA should he need one. Patient has been admitted for uncontrolled pain, metastatic colon cancer, recent CDIFF diagnosis, and venous thromboembolism. Patient's PCP is Dr. Erick Alexandra. No therapies ordered at this time. D/C plan TBD. CM will follow. Date Signed: 11/04/2018 03:42 PM Electronically Signed By:Kylie Blanco LCSW
[2018-11-05] MEDS: VANCOMYCIN 125 MG/2.5 ML UDL PO SCH ×3 (00:37→12:03)
[2018-11-05 05:10] VITALS: BP 97/57
[2018-11-05] MEDS: HYDROmorphONE/DILAUDID 6 MG/30 ML PCA IV PRN (05:13)
[2018-11-05] MEDS: GABAPENTIN 300 MG CAP PO SCH (08:23)
--- NOTE | 2018-11-05 09:16 | SOAPPROG ---
SOAP Progress Note Assessment/Plan: Assessment: 58 yo male with a h/o metastatic colon cancer which was diagnosed in 2016 and with recurrence in 2018. He was admitted after being diagnosed with cdiff on Saturday for increased and uncontrollable abdominal pain. Plan: Uncontrolled abdominal pain: pain at baseline with colon cancer, but increased with current episode of cdiff. Currently on RN RECOVERY titratable up to 0.4mg q15m based on pain level. Will add toradol 30mg q6h. Also continue outpt meds- oxycontin 40mg q12h and prn oxycodone for breakthrough. CDiff: PO vanco. Loose bowel movements are slowed. Has had fecal transplant previously, will consult GI to see if a repeat transplant may be an option. Colon cancer, metastatic: currently not being treated, followed at [facility] Code status: Full cor DVT Prophylaxis: Lovenox Dispo: admit to inpt as anticipate greater than 2 midnights 11/04/18 09:05 Uncontrolled abd pain: back to baseline level of pain, aroudn 10. Will trial fentanyl patch in conjunction with his current PO meds to see if this provides further pain relief. CDiff: PO vanco Colon cancer, metastatic: followed at [facility] Dispo: d/c home today and f/u Saturday11/05/18 09:12 Subjective: Vinny is resting in the chair. Says his pain is back to baseline. He is eager to get home. Objective: Vital Signs Temp Pulse Resp BP Pulse Ox 37.0 C 56 L 16 97/57 L 99 11/05/18 04:00 11/05/18 08:00 11/05/18 08:00 11/05/18 08:00 11/05/18 08:00 Laboratory Results 11/05/18 05:21 11/04/18 11/05/18 11/06/18 05:59 05:59 05:59 Intake Total 1839.1 Balance 1839.1 PT 13.9 SEC (12.0-15.0) 11/03/18 17:05 INR 1.11 (0.83-1.16) 11/03/18 17:05 Gen- alert, oriented, vitals stable Head- normocephalic, atraumatic EENT- PEERL, EOMI Skin- warm and dry ICD10 Worksheet Patient Problems: Problems Problem Status Onset Abdominal pain Acute Colon cancer Acute Intractable pain Acute Anemia Acute Chest pain Acute Hydronephrosis of right kidney Acute Postoperative intra-abdominal abscess Acute Right inguinal hernia Acute Thrombocytosis Acute Ureterolithiasis Acute
[2018-11-05] MEDS ORDERED: fentaNYL 50 MCG PATCH TD SCH (09:30)
[2018-11-05] MEDS: ENOXAPARIN 40 MG/0.4 ML SYR SC SCH (11:15)
--- NOTE | 2018-11-05 21:07 | GDS ---
[f rep st] DISCHARGE SUMMARY PRIMARY DIAGNOSES: Clostridium difficile, abdominal pain, colon cancer with metastases. HOSPITAL COURSE: The patient is a 58-year-old male who was admitted through the emergency department for increased abdominal pain related to C difficile infection on top of colon cancer with metastases , primarily for uncontrolled pain. CT obtained while he was in the emergency department revealed pro gressive metastatic disease with multiple new pulmonary nodules at the lung bases, several which were cavitary, as well as new hepatic metastatic disease, progressively enlarged mesenteric para-aortic a nd portacaval lymph nodes, and moderate constipation. He was admitted for pain management and was st arted on a Dilaudid [employer] in addition to his chronic oral regimen consisting of OxyContin 40 mg twice d aily and oxycodone 5 to 10 mg p.o. q.4 hours p.r.n. breakthrough pain. He was also given a dose of k etamine IV in the emergency department, which markedly improved his pain but led to a fair amount of hallucinations and psychotropic side effects which were unsettling for the patient. Pain markedly im proved over the next 12 hours, and he was continued on a Dilaudid [employer] over the next day with continue d pain management. He will be discharged home with a fentanyl patch 50 mcg on top of his current med regimen and will follow up with his PCP in the office on Saturday. DISCHARGE MEDICATIONS: Include Duragesic 50 mcg patch transdermally every 72 hours, gabapentin 900 m g p.o. t.i.d., vancomycin 125 mg p.o. q.6 hours, oxycodone 5 to 10 mg p.o. q.4 hours p.r.n. pain, Oxy Contin 40 mg p.o. q.12 hours. FOLLOWUP: The patient will follow up with Primary Care in the office on Saturday. /[id number]/MODL
== END 2018-11-05 13:12 | disposition home or self-care (01) | DRG 375 ==
LOC: EDUNIT# → F2N 19:49 → OBSVTOIN 11-04 14:58
PROVIDERS: ADMIT Student in an Organized Health Care Education/Training Program; ATTEND Student in an Organized Health Care Education/Training Program
DX: C18.9 Malignant neoplasm of colon, unspecified (principal); C78.7 Secondary malignant neoplasm of liver and intrahepatic bile duct; C78.00 Secondary malignant neoplasm of unspecified lung; G89.3 Neoplasm related pain (acute) (chronic); B96.89 Other specified bacterial agents as the cause of diseases classified elsewhere; K59.00 Constipation, unspecified; E86.9 Volume depletion, unspecified
CPT/HCPCS: 82435-PO; 82565-PO; 82947-PO; 84132-PO; 84295-PO; 84520-PO; 85014-ER; 96374; G0378; J1170; J1650; J1885; J2405; P9047; Q9967